=== PATIENT | female | born 1980 | race Two or more races ===

== ENCOUNTER 2017-10-03 10:14 | Outpatient (CLI) | payer OTHER | END 2017-10-03 10:26 | disposition home or self-care (01) | LOC: SONOGRAMA 10:14 | DX: E11.65 Type 2 diabetes mellitus with hyperglycemia (principal); E04.8 Other specified nontoxic goiter ==

== ENCOUNTER 2018-04-01 15:30 | Outpatient (CLI) | payer OTHER | END 2018-04-01 15:48 | disposition home or self-care (01) | LOC: RAD 501 15:30 | DX: M54.5 Low back pain (principal) ==

== ENCOUNTER 2023-03-11 09:22 | Outpatient (CLI) | payer OTHER | END 2023-03-11 09:32 | disposition home or self-care (01) | LOC: MAMO-SONO 09:22 | PROVIDERS: ATTEND Obstetrics & Gynecology | DX: R10.2 Pelvic and perineal pain (principal); D25.1 Intramural leiomyoma of uterus; N60.11 Diffuse cystic mastopathy of right breast; N60.12 Diffuse cystic mastopathy of left breast; Z12.31 Encounter for screening mammogram for malignant neoplasm of breast ==

== ENCOUNTER → 2023-05-17 | Outpatient (CLI) | payer OTHER | END | disposition home or self-care (01) | LOC: RAD 13:32 | DX: M54.50 Low back pain, unspecified (principal); Z88.2 Allergy status to sulfonamides; Z88.8 Allergy status to other drugs, medicaments and biological substances ==

== ENCOUNTER 2023-06-19 15:38 | Outpatient (CLI) | payer OTHER | END 2023-06-19 16:01 | disposition home or self-care (01) | LOC: RAD 15:38 | DX: M54.59 Other low back pain (principal) ==

== ENCOUNTER 2024-03-24 13:46 | Outpatient (CLI) | payer OTHER | END 2024-03-24 14:02 | disposition home or self-care (01) | LOC: MRI 13:46 | PROVIDERS: ATTEND Physical Medicine & Rehabilitation | DX: M54.50 Low back pain, unspecified (principal) | CPT/HCPCS: 72148 ==

== ENCOUNTER 2024-12-08 08:55 | Outpatient (CLI) | payer OTHER | END 2024-12-08 08:56 | disposition home or self-care (01) | LOC: MAMO-SONO 08:55 | PROVIDERS: ATTEND Obstetrics & Gynecology | DX: N60.11 Diffuse cystic mastopathy of right breast (principal); N60.12 Diffuse cystic mastopathy of left breast; D25.2 Subserosal leiomyoma of uterus; D25.0 Submucous leiomyoma of uterus ==

== ENCOUNTER 2025-06-01 08:16 | Outpatient (CLI) | payer OTHER | END 2025-06-01 08:30 | disposition home or self-care (01) | LOC: MRI 08:16 | DX: M25.551 Pain in right hip (principal) | CPT/HCPCS: 73721 ==